=== PATIENT | female | born 1960 | race Caucasian/White ===

== ENCOUNTER 2025-01-05 09:10 | Outpatient (CLI) | payer MEDICARE | END 2025-01-05 09:11 | disposition home or self-care (01) | LOC: SCSMRI 09:10 | PROVIDERS: ATTEND Student in an Organized Health Care Education/Training Program | DX: H53.8 Other visual disturbances (principal); R25.3 Fasciculation; I67.82 Cerebral ischemia; R90.82 White matter disease, unspecified | CPT/HCPCS: 70553; 76376 ==